=== PATIENT | female | born 1950 | race Caucasian/White ===

== ENCOUNTER 2022-01-15 12:57 | Outpatient (CLI) | payer OTHER, SELFPAY ==
[2022-01-15 13:09] LABS: Basophils % 0.5 %; Eosinophils % 0.9 %; Hematocrit 30.6 % (37.0-47.0); Hemoglobin 9.8 g/dL (11.5-15.3); Lymphocytes # 0.5 10^3/uL (0.8-4.8); Lymphocytes % 12.1 %; Mean Corpuscular Hemoglobin 31.3 pg (28.0-34.0); Mean Corpuscular Volume 97.8 fl (81-99); Mean Platelet Volume 13.5 fL (7.4-10.4); Monocytes # 0.2 10^3/uL (0.2-0.9); Monocytes % 5.4 %; Neutrophils % 80.4 %; Nucleated Red Blood Cells % 0 %; Platelet Count 83 10^3/cmm (130-400); Red Blood Count 3.13 10^6/uL (4.1-5.3); Red Cell Distribution Width 18.7 % (12.1-15.1); White Blood Count 4.2 10^3/uL (4.0-10.0)
[2022-01-15 13:24] LABS: Slide Review Slide Review Perform
== END 2022-01-15 12:58 | disposition home or self-care (01) ==
LOC: LAB 13:00
PROVIDERS: Family Provider General Practice; PCP Internal Medicine Nephrology; Visit Provider Internal Medicine Nephrology
DX: R79.9 Abnormal finding of blood chemistry, unspecified (principal)
CPT/HCPCS: 85025

== ENCOUNTER 2022-03-27 15:52 | Outpatient (CLI) | payer OTHER, SELFPAY ==
[2022-03-27 18:01] LABS: Alanine Aminotransferase 11 U/L (0-33); Albumin Level 2.3 g/dL (3.5-5.2); Alkaline Phosphatase 141 U/L (35-105); Blood Urea Nitrogen 29 mg/dL (8-23); Calcium 8.3 mg/dL (8.5-10.5); Carbon Dioxide 26 mmol/L (22-29); Chloride 92 mmol/L (98-107); Globulin 3.1 g/dL (1.3-4.6); Glucose 82 mg/dL (65-115); Osmolality Calculated 283 mOsm/kg (285-295); Sodium 134 mmol/L (136-145); Total Bilirubin 0.9 mg/dL (0.15-1.2); Total Protein 5.4 g/dL (6.6-8.7)
[2022-03-27 18:02] LABS: Anion Gap 20.8 (5-19); Aspartate Amino Transferase 20 U/L (0-32); Potassium 4.8 mmol/L (3.5-5.1)
== END 2022-03-27 15:53 | disposition home or self-care (01) ==
PROVIDERS: PCP Internal Medicine; Visit Provider Internal Medicine
DX: I87.2 Venous insufficiency (chronic) (peripheral) (principal); L97.909 Non-pressure chronic ulcer of unspecified part of unspecified lower leg with unspecified severity
CPT/HCPCS: 80053

== ENCOUNTER 2022-03-28 10:58 | Outpatient (CLI) | payer OTHER, MEDICARE, SELFPAY ==
[2022-03-28 13:04] LABS: INR 3.92 (0.8-1.2)
[2022-03-28 13:07] LABS: D Dimer 0.93 ug/mIFEU (0-0.59)
[2022-03-28 13:09] LABS: Alanine Aminotransferase 12 U/L (0-33); Blood Urea Nitrogen 26 mg/dL (8-23); Carbon Dioxide 30 mmol/L (22-29); Chloride 92 mmol/L (98-107); Globulin 3.8 g/dL (1.3-4.6); Glucose 102 mg/dL (65-115); Osmolality Calculated 279 mOsm/kg (285-295); Sodium 132 mmol/L (136-145); Total Bilirubin 0.9 mg/dL (0.15-1.2); Total Protein 6.1 g/dL (6.6-8.7)
[2022-03-28 13:10] LABS: Albumin Level 2.3 g/dL (3.5-5.2); Alkaline Phosphatase 128 U/L (35-105)
[2022-03-28 13:11] LABS: Anion Gap 14.6 (5-19); Aspartate Amino Transferase 23 U/L (0-32); Potassium 4.6 mmol/L (3.5-5.1)
== END 2022-03-28 10:59 | disposition home or self-care (01) ==
PROVIDERS: PCP Internal Medicine; Visit Provider Internal Medicine
DX: I87.2 Venous insufficiency (chronic) (peripheral) (principal); L97.909 Non-pressure chronic ulcer of unspecified part of unspecified lower leg with unspecified severity
CPT/HCPCS: 36415; 80053; 85378; 85610

== ENCOUNTER 2022-03-31 09:30 | Outpatient (CLI) | payer OTHER, SELFPAY ==
[2022-03-31 09:42] LABS: Basophils % 0.3 %; Eosinophils # 0.1 10^3/uL (0.0-0.8); Hemoglobin 10.1 g/dL (11.5-15.3); Lymphocytes # 0.9 10^3/uL (0.8-4.8); Lymphocytes % 7.9 %; Mean Corpuscular HGB Conc 31.6 g/dL (30.0-36.0); Mean Corpuscular Hemoglobin 30.1 pg (28.0-34.0); Mean Corpuscular Volume 95.2 fl (81-99); Mean Platelet Volume 13.7 fL (7.4-10.4); Monocytes # 0.3 10^3/uL (0.2-0.9); Monocytes % 2.3 %; Neutrophils # 10.15 10^3/uL (1.8-7.7); Neutrophils % 88.1 %; Nucleated Red Blood Cells % 0 %; Platelet Count 156 10^3/cmm (130-400); Red Blood Count 3.36 10^6/uL (4.1-5.3); Red Cell Distribution Width 17.2 % (12.1-15.1); White Blood Count 11.5 10^3/uL (4.0-10.0)
== END 2022-03-31 09:31 | disposition home or self-care (01) ==
LOC: LAB 09:33
PROVIDERS: PCP Internal Medicine; Visit Provider Internal Medicine
DX: I35.0 Nonrheumatic aortic (valve) stenosis (principal)
CPT/HCPCS: 85025

== ENCOUNTER → 2022-08-09 15:24 | Outpatient (BNVA) | payer MEDICARE, OTHER, SELFPAY | PROVIDERS: PCP Internal Medicine; Visit Provider Thoracic Surgery (Cardiothoracic Vascular Surgery) | DX: I96 Gangrene, not elsewhere classified (principal); L89.152 Pressure ulcer of sacral region, stage 2; L89.622 Pressure ulcer of left heel, stage 2; L97.129 Non-pressure chronic ulcer of left thigh with unspecified severity; L97.119 Non-pressure chronic ulcer of right thigh with unspecified severity ==

== ENCOUNTER → 2022-08-16 14:46 | Outpatient (BNVA) | payer MEDICARE, OTHER, SELFPAY | PROVIDERS: PCP Internal Medicine; Visit Provider Thoracic Surgery (Cardiothoracic Vascular Surgery) | DX: L97.129 Non-pressure chronic ulcer of left thigh with unspecified severity (principal); L89.622 Pressure ulcer of left heel, stage 2; L89.152 Pressure ulcer of sacral region, stage 2; L89.213 Pressure ulcer of right hip, stage 3 ==

== ENCOUNTER 2022-08-22 04:20 | Outpatient (CLI) | payer MEDICARE, OTHER, SELFPAY ==
[2022-08-22 04:35] LABS: Basophils % 0.2 %; Eosinophils % 0.3 %; Hematocrit 26.7 % (37.0-47.0); Hemoglobin 7.9 g/dL (11.5-15.3); Lymphocytes # 0.7 10^3/uL (0.8-4.8); Lymphocytes % 10.9 %; Mean Corpuscular HGB Conc 29.6 g/dL (30.0-36.0); Mean Corpuscular Hemoglobin 30.5 pg (28.0-34.0); Mean Corpuscular Volume 103.1 fl (81-99); Mean Platelet Volume 12.6 fL (7.4-10.4); Monocytes # 0.3 10^3/uL (0.2-0.9); Monocytes % 4.8 %; Neutrophils # 5.32 10^3/uL (1.8-7.7); Neutrophils % 81.6 %; Nucleated Red Blood Cells % 0 %; Platelet Count 183 10^3/cmm (130-400); Red Blood Count 2.59 10^6/uL (4.1-5.3); Red Cell Distribution Width 17.6 % (12.1-15.1); White Blood Count 6.5 10^3/uL (4.0-10.0)
[2022-08-22 05:09] LABS: Alanine Aminotransferase 13 U/L (0-33); Albumin Level 2.2 g/dL (3.5-5.2); Alkaline Phosphatase 85 U/L (35-105); Anion Gap 13.4 (5-19); Aspartate Amino Transferase 14 U/L (0-32); Blood Urea Nitrogen 13 mg/dL (8-23); Calcium 8.1 mg/dL (8.5-10.5); Carbon Dioxide 27 mmol/L (22-29); Chloride 102 mmol/L (98-107); Globulin 1.6 g/dL (1.3-4.6); Glucose 85 mg/dL (65-115); Osmolality Calculated 287 mOsm/kg (285-295); Potassium 3.4 mmol/L (3.5-5.1); Sodium 139 mmol/L (136-145); Total Bilirubin 0.3 mg/dL (0.15-1.2); Total Protein 3.8 g/dL (6.6-8.7)
[2022-08-22 10:49] LABS: Cholesterol 99 mg/dL (0-200); HDL Cholesterol 23 mg/dL (60-100); LDL Cholesterol Calculated 51 mg/dL (50-129); LDL HDL Ratio 2.22 RATIO (0.00-3.22); Triglycerides 125 mg/dL (0-150)
== END 2022-08-22 04:21 | disposition home or self-care (01) ==
LOC: LAB 04:23
PROVIDERS: PCP Internal Medicine; Visit Provider Internal Medicine
DX: Z01.89 Encounter for other specified special examinations (principal)
CPT/HCPCS: 80053; 80061; 85025

== ENCOUNTER 2022-08-28 16:05 | Emergency (ER) | payer MEDICARE, OTHER, SELFPAY ==
[2022-08-28] VITALS (7 sets, daily range): BP systolic 99–131; BP diastolic 56–90; PULSE 90; RESP 18; O2SAT 92–98; BMI 25.8
--- NOTE | 2022-08-28 16:18 | ED_ITS ---
HPI - General Adult General: Chief complaint: General Medical Stated complaint: WOUND GETTING WORSE Time Seen by Provider: 08/28/22 16:07 Source: patient Mode of arrival: EMS History of Present Illness: 72-year-old female [facility] has chronic ulcers. She has a hypercoagulable disorder, the specific diagnoses not been recorded in her chart she is not sure of the name of it. She was sent in today because they were concerned about her wounds. She not had any fevers sweats or chills she is hyperesthetic and has chronic pain issues. On arrival here she is alert and oriented she can tell me fairly detailed history of her wounds and her previous DVT and pulmonary emboli including a trial off of the medication and having to restart it because of recurrences. She is usually seen by Dr. Seth from the wound care clinic who has notes in the chart seeing [facility] at the [facility]. I did call and discussed with him regarding this patient see the notes below. She does have a sharp green drainage from the wounds it appears to be secondary to a medicine rather than actual purulent drainage. Onset (ago): month(s) Location: buttocks and lower extremity (Ulcers in the proximal lower extremities) Relieving factors: none Exacerbating factors: none Associated symptoms: Reports confusion; Deny chest pain, cough, diaphoresis, decreased appetite, dyspnea, fevers/chills, headache(s), malaise, nausea, rash, palpitations, seizures, short of breath, syncope, vomiting or weakness Treatments prior to arrival: none Review of Systems Const: Denies: fever(s), chills, malaise or diaphoresis ENMT: Denies: throat pain, ear or mastoid pain, nasal discharge or nasal congestion Card: Denies: chest pain, palpitations or syncope Resp: Denies: dyspnea, productive cough or non-productive cough GI: Reports: abdominal pain; Denies: nausea or vomiting : Denies: flank pain, difficulty voiding, dysuria, urinary frequency or urinary urgency Skin/Breast: Denies: rash or pruritus Neuro: Reports: confusion; Denies: headache(s) PFS ED PFSH: Medical History COPD (chronic obstructive pulmonary disease) DVT (deep venous thrombosis) Hypothyroid Iron deficiency anemia Pulmonary embolism Venous ulcer of lower leg without varicose veins Social History Smoking and tobacco status: never smoked Alcohol intake: never Physical Exam Const: GENERAL APPEARANCE: cooperative and comfortable ORIENTATION/CONSCIOUSNESS: Yes awake, Yes oriented to person, Yes oriented to place and Yes oriented to time HENMT: COMMON NORMALS: normocephalic, atraumatic and hearing grossly normal bilaterally HEAD & SCALP: normocephalic and atraumatic Resp: COMMON NORMALS: normal respiratory effort, No retractions, No use of accessory muscles and clear to auscultation bilaterally AUSCULTATION: clear to auscultation bilaterally Cardio: COMMON NORMALS: regular rate, regular rhythm and No murmurs present (Cardio) RATE: regular rate RHYTHM: regular rhythm GI: COMMON NORMALS: Soft to palpation and No hepatosplenomegaly present AUSCULTATION: Yes normoactive bowel sounds PALPATION: Yes Soft to palpation, No Tenderness to palpation present (GI), No Guarding due to palpation present (GI) and Yes No hepatosplenomegaly present Extremity: OTHER: Multiple ulcers. Compared to previous notes and pictures. No significant changes there is minimal localized erythema there is a green drainage that is not purulent appears to be secondary to breakdown of wound dressings. There is a mucousy eschar base to most of the wounds. There are wounds on the lateral proximal thighs on the buttocks and in the presacral area. No active drainage or induration on any of the wounds. Neuro: SENSORIUM/ORIENTATION: Yes oriented to person, Yes oriented to place and Yes oriented to time Skin: COMMON NORMALS: no rashes or lesions noted GENERAL SKIN EXAM: no tana hes or lesions noted Course Vital Signs: Vital signs: Vital Signs Pulse Rate 90 08/28/22 16:11 Respiratory Rate 18 08/28/22 18:24 Blood Pressure 131/62 08/28/22 18:00 Pulse Oximetry 96 08/28/22 17:05 Oxygen Delivery Me thod 08/28/22 16:11 MDM - General Adult Medical Decision Making Reviewed Dr. Seth's note from 1 week ago as well as the pictures that is placed in the chart. Overall there is no significant change does appear to be more mucousy based to some of these and they could do some debridement. There is no purulent drainage at this time. In discussing with Dr. Seth the patient is chronically hypersensitive to even light touch. She does seem to be relatively good historian at this point she is able to provide fairly good detail and some of her past medical history. She is chronically anemic. She has macrocytic anemia her hemoglobin is stable from 1 week ago at 7.9 her vital signs are stable she is clinically not decompensated. Her white count is normal. At this point I think she can be [facility]. Her hemoglobin be monitored there as well. Medical Records I reviewed the patient's medical records. Lab Data I reviewed the patient's lab results. 08/28/22 16:30 08/28/22 16:30 Laboratory Results WBC 8.8 10^3/uL (4.0-10.0) 08/28/22 16:30 RBC 2.64 10^6/uL (4.1-5.3) L 08/28/22 16:30 Hgb 7.9 g/dL (11.5-15.3) L 08/28/22 16:30 Hct 27.2 % (37.0-47.0) L 08/28/22 16:30 MCV 103.0 fl (81-99) H 08/28/22 16:30 MCH 29.9 pg (28.0-34.0) 08/28/22 16:30 MCHC 29.0 g/dL (30.0-36.0) L 08/28/22 16:30 RDW 17.3 % (12.1-15.1) H 08/28/22 16:30 Plt Count 218 10^3/cmm (130-400) 08/28/22 16:30 MPV 12.2 fL (7.4-10.4) H 08/28/22 16:30 Neut % (Auto) 84.8 % 08/28/22 16: Lymph % (Auto) 7.9 % 08/28/22 16:30 Clinch % (Auto) 4.3 % 08/28/22 16:30 Eos % (Auto) 0.5 % 08/28/22 16:30 Baso % (Auto) 0.3 % 08/28/22 16:30 Neut # (Auto) 7.47 10^3/uL (1.8-7.7) 08/28/22 16:30 Lymph # (Auto) 0.7 10^3/uL (0.8-4.8) L 08/28/22 16:30 Clinch # (Auto) 0.4 10^3/uL (0.2-0.9) 08/28/22 16:30 Eos # (Auto) 0.0 10^3/uL (0.0-0.8) 08/28/22 16:30 Baso # (Auto) 0.0 10^3/uL (0.0-0.1) 08/28/22 16:30 Nucleated RBC % (auto) 0 % 08/28/22 16:30 Nucleated RBCs # 0.0 /100WBC 08/28/22 16:30 Sodium 140 mmol/L (136-145) 08/28/22 16:30 Potassium 3.2 mmol/L (3.5-5.1) L 08/28/22 16:30 Chloride 102 mmol/L (98-107) 08/28/22 16:30 Carbon Dioxide 29 mmol/L (22-29) 08/28/22 16:30 Anion Gap 12.2 (5-19) 08/28/22 16:30 BUN 16 mg/dL (8-23) 08/28/22 16:30 Creatinine 0.5 mg/dL (0.5-0.9) 08/28/22 16:30 GFR Calculation Not Reportable 08/28/22 16:30 Glucose 97 mg/dL (65-115) 08/28/22 16:30 Calculated Osmolality 291 mOsm/kg (285-295) 08/28/22 16:30 Calcium 8.9 mg/dL (8.5-10.5) 08/28/22 16:30 Total Bilirubin 0.4 mg/dL (0.15-1.2) 08/28/22 16:30 AST 12 U/L (0-32) 08/28/22 16:30 ALT 12 U/L (0-33) 08/28/22 16:30 Alkaline Phosphatase 103 U/L (35-105) 08/28/22 16:30 Total Protein 4.6 g/dL (6.6-8.7) L 08/28/22 16:30 Albumin 2.1 g/dL (3.5-5.2) L 08/28/22 16:30 Globulin 2.5 g/dL (1.3-4.6) 08/28/22 16:30 Discharge Plan Discharge Patient Disposition: Home Clinical Impression: Pressure ulcers of skin of multiple topographic sites, COPD (chronic obstructive pulmonary disease), Iron deficiency anemia Condition: Stable Prescriptions: New ipratropium-albuterol 0.5 mg-3 mg(2.5 mg base)/3 mL solution for nebulization 3 ml inhalation Q4H PRN (Reason: shortness of breath/cough) Qty: 180 0RF Rx Instructions: until breathing returns to target peak flow/parameters No Action Senna Plus 8.6-50 mg capsule 2 tab-cap PO DAILY@08 escitalopram oxalate 20 mg tablet 20 mg PO DAILY@08 ferrous sulfate 325 mg (65 mg iron) tablet 325 mg PO DAILY@08 acetaminophen 500 mg tablet 1,000 mg PO Q8H Rx Instructions: @00:00,08:00,16:00 apixaban 5 mg tablet 5 mg PO BID@08,20 atorvastatin 10 mg tablet 10 mg PO BEDTIME@20 famotidine 40 mg tablet 40 mg PO BID@08,20 mycophenolate mofetil 500 mg tablet 1,000 mg PO BID@08,20 docusate sodium [Colace] 100 mg capsule 100 mg PO BID PRN (Reason: Constipation) ondansetron HCl 4 mg tablet 4 mg PO Q4H PRN (Reason: Nausea And Vomiting) polyethylene glycol 3350 [Miralax] 17 gram/dose powder 17 g PO DAILY PRN (Reason: Constipation) albuterol sulfate 90 mcg/actuation HFA aerosol inhaler 2 puff inhalation Q6H PRN (Reason: Wheezing) nystatin 100,000 unit/gram powder 1 applic topical BID Rx Instructions: to abdominal fold oxycodone 5 mg tablet 5 mg PO Q6H PRN (Reason: pain) 30 Days Qty: 60 0RF bisacodyl 10 mg Suppository 10 mg [place] DAILY PRN (Reason: Constipation) levothyroxine 150 mcg Tablet 150 mcg PO DAILY@06 aripiprazole 5 mg tablet 5 mg PO BEDTIME@20 Miralax 17 gram Powder In Packet 17 g PO DAILY@08 Cassie-Tussin 100 mg/5 mL Liquid 200 mg PO Q4H PRN (Reason: Cough) Arginaid 4.5 gram-156 mg/9.2 gram Powder In Packet See Rx Instructions .ROUTE .COMPLEX Rx Instructions: one packet three times a day @08:00,12:00,16:00 Boost Plus 0.06 gram- 1.5 kcal/mL Liquid 1 ea PO BID@08,20 Discharge Orders: Discharge ED (Routine); Ordered 08/28/22 Ordered By: Umang Ross Referrals: John Pillai MD [Primary Care Provider] - Discharge Diet: Usual diet Discharge Activity: Limit activity as instructed Patient Instructions: Opioid Safety, Pain Management Activity Restrictions/Additional Instructions: You are seen today for concerns of your chronic venous stasis ulcers. Reviewing the previous charts and pictures from wound care as well as examining you there does not appear to be any acute changes there. Per Dr. Seth's recommendation you should use only saline soaked gauze for wet-to-dry dressing changes once daily. For your cough use DuoNebs nebulized every 4 hours as needed. Coding Level of Care Code ED Cardiovascular Technologist for Vadim Tovar
[2022-08-28] MEDS: sodium chloride 0.9% 1,000 ML 999 ML IV (16:41)
--- NOTE | 2022-08-28 16:53 | PC.PHAR ---
pt is from [facility] [phone]-per kaitlin nurse at [facility] states the pt had all am meds and a prn oxycodone today
[2022-08-28 17:05] LABS: Basophils % 0.3 %; Eosinophils % 0.5 %; Hematocrit 27.2 % (37.0-47.0); Hemoglobin 7.9 g/dL (11.5-15.3); Lymphocytes # 0.7 10^3/uL (0.8-4.8); Lymphocytes % 7.9 %; Mean Corpuscular Hemoglobin 29.9 pg (28.0-34.0); Mean Platelet Volume 12.2 fL (7.4-10.4); Monocytes # 0.4 10^3/uL (0.2-0.9); Monocytes % 4.3 %; Neutrophils # 7.47 10^3/uL (1.8-7.7); Neutrophils % 84.8 %; Nucleated Red Blood Cells % 0 %; Platelet Count 218 10^3/cmm (130-400); Red Blood Count 2.64 10^6/uL (4.1-5.3); Red Cell Distribution Width 17.3 % (12.1-15.1); White Blood Count 8.8 10^3/uL (4.0-10.0)
[2022-08-28 17:33] LABS: Alanine Aminotransferase 12 U/L (0-33); Albumin Level 2.1 g/dL (3.5-5.2); Alkaline Phosphatase 103 U/L (35-105); Anion Gap 12.2 (5-19); Aspartate Amino Transferase 12 U/L (0-32); Blood Urea Nitrogen 16 mg/dL (8-23); Calcium 8.9 mg/dL (8.5-10.5); Carbon Dioxide 29 mmol/L (22-29); Chloride 102 mmol/L (98-107); Creatinine Clr Calc Pharmacy 63.8809; Globulin 2.5 g/dL (1.3-4.6); Glucose 97 mg/dL (65-115); Osmolality Calculated 291 mOsm/kg (285-295); Potassium 3.2 mmol/L (3.5-5.1); Sodium 140 mmol/L (136-145); Total Bilirubin 0.4 mg/dL (0.15-1.2); Total Protein 4.6 g/dL (6.6-8.7)
[2022-08-28] MEDS: oxyCODONE 5 mg IR Tab/Cap PO (18:24)
== END 2022-08-28 18:45 | disposition home or self-care (01) ==
PROVIDERS: Emergency Provider Family Medicine; PCP Internal Medicine
DX: L89.329 Pressure ulcer of left buttock, unspecified stage (principal); L89.319 Pressure ulcer of right buttock, unspecified stage; L89.159 Pressure ulcer of sacral region, unspecified stage; L89.899 Pressure ulcer of other site, unspecified stage; J44.9 Chronic obstructive pulmonary disease, unspecified; D50.9 Iron deficiency anemia, unspecified
CPT/HCPCS: 80053; 85025; 87040; 96360; 99284; J7030